=== PATIENT | male | born 1935 | race Caucasian/White ===

== ENCOUNTER 2024-02-13 17:57 | Emergency (ER) | payer MEDICARE, BC, SELFPAY ==
--- NOTE | 2024-02-13 18:12 | ED.PDOC.TRB ---
ED Provider Triage
-
Patient seen by provider in Triage?: Seen in Triage
This is a 88 year old male that comes in with c/o pain in the left that is shooting up in to his leg. This started 2.5 weeks ago. Pain has increased.
[2024-02-13 18:13] VITALS: BP 162/96
[2024-02-13 18:39] LABS: % Basophils 0.5 % (0-2); % Eosinophils 1.2 % (0-6); % Immature Granulocytes 0.3 % (0-0.5); % Monocytes 6.5 % (1.7-9.3); % Neutrophils 79.5 % (42.2-75.2); Absolute Eosinophils 0.1 10^3/uL (0-0.7); Absolute Lymphocytes 1.1 10^3/uL (1.2-3.4); Absolute Monocytes 0.6 10^3/uL (0.1-0.6); Hematocrit 37.5 % (39.0-52.0); Mean Corp Hgb Conc. 34.7 g/dL (33.0-37.0); Mean Corpuscular Hgb 34.5 pg (27.0-31.0); Mean Corpuscular Volume 99.5 fL (80.0-94.0); Mean Platelet Volume 9.9 fL (7.4-10.4); Nucleated Red Blood Cells % 0 % (-); Platelet Count 180 10^3/uL (130-400); Red Blood Cell Count 3.77 10^6/uL (4.70-6.10); Red Cell Dist. Width 11.9 % (11.5-14.5); White Blood Cell Count 8.8 10^3/uL (4.8-10.8)
[2024-02-13 18:53] LABS: ALT (SGPT) 21 U/L (0-50); AST (SGOT) 34 U/L (17-59); Albumin 4.4 g/dl (3.5-5.0); Alkaline Phosphatase 76 U/L (38-126); Blood Urea Nitrogen 30 mg/dl (9-20); Carbon Dioxide 22 mmol/L (22-30); Chloride 102 mmol/L (98-107); Glucose 161 mg/dl (70-99); Potassium 4.8 mmol/L (3.5-5.1); Sodium 141 mmol/L (135-145); Total Bilirubin 0.7 mg/dl (0.2-1.3); Total Protein 6.9 g/dl (6.3-8.2)
[2024-02-13 19:11] LABS: Uric Acid 8.4 mg/dl (3.5-8.5)
--- NOTE | 2024-02-13 21:41 | EDRN ---
This RN was informed that Patient was seen ambulating out of the department by ED registration within the last 10 minutes.
== END 2024-02-13 21:48 | disposition left against medical advice (07) ==
LOC: EMR 17:57
PROVIDERS: Clinical Nurse Specialist Family Health; FAMILY PHYSICIAN Physician Assistant
DX: R22.42 Localized swelling, mass and lump, left lower limb (principal); M79.605 Pain in left leg; Z53.21 Procedure and treatment not carried out due to patient leaving prior to being seen by health care provider
CPT/HCPCS: 99281; 73630; 80053; 84550; 85025; 93971

== ENCOUNTER → 2024-02-27 14:40 | Outpatient (REF) | payer MEDICARE, BC, SELFPAY ==
[2024-02-27 15:42] LABS: % Basophils 0.1 % (0-2); % Eosinophils 0.1 % (0-6); % Immature Granulocytes 1.9 % (0-0.5); % Lymphocytes 7.7 % (20.5-51.1); % Monocytes 1.7 % (1.7-9.3); % Neutrophils 88.5 % (42.2-75.2); Absolute Immature Granulocytes 0.2 10^3/uL (0-0.05); Absolute Monocytes 0.2 10^3/uL (0.1-0.6); Absolute Neutrophils 10.9 10^3/uL (1.4-6.5); Hematocrit 38.4 % (39.0-52.0); Hemoglobin 12.9 g/dL (13.0-18.0); Mean Corp Hgb Conc. 33.6 g/dL (33.0-37.0); Mean Corpuscular Volume 98.2 fL (80.0-94.0); Mean Platelet Volume 9.8 fL (7.4-10.4); Nucleated Red Blood Cells % 0 % (-); Platelet Count 233 10^3/uL (130-400); Red Blood Cell Count 3.91 10^6/uL (4.70-6.10); Red Cell Dist. Width 12.1 % (11.5-14.5); White Blood Cell Count 12.3 10^3/uL (4.8-10.8)
[2024-02-27 15:51] LABS: Erythrocyte Sed Rate 27 mm/hour (0-20)
[2024-02-27 16:11] LABS: ALT (SGPT) 28 U/L (0-50); AST (SGOT) 29 U/L (17-59); Albumin 4.6 g/dl (3.5-5.0); Alkaline Phosphatase 65 U/L (38-126); Blood Urea Nitrogen 38 mg/dl (9-20); Calcium 10.1 mg/dl (8.4-10.2); Carbon Dioxide 26 mmol/L (22-30); Chloride 97 mmol/L (98-107); Glucose 108 mg/dl (70-99); Potassium 5.6 mmol/L (3.5-5.1); Sodium 137 mmol/L (135-145); Total Bilirubin 0.8 mg/dl (0.2-1.3)
[2024-02-27 16:21] LABS: Uric Acid 8.1 mg/dl (3.5-8.5)
== END ==
LOC: REG 14:40
PROVIDERS: ATTENDING PHYSICIAN Physician Assistant
DX: M10.9 Gout, unspecified (principal); N18.31 Chronic kidney disease, stage 3a
CPT/HCPCS: 36415; 80053; 84550; 85025; 85652

== ENCOUNTER → 2024-05-15 13:58 | Outpatient (REF) | payer MEDICARE, BC, SELFPAY ==
[2024-05-15 15:21] LABS: Blood Urea Nitrogen 30 mg/dl (9-20); Calcium 9.7 mg/dl (8.4-10.2); Carbon Dioxide 29 mmol/L (22-30); Chloride 99 mmol/L (98-107); Glucose 89 mg/dl (70-99); Potassium 4.3 mmol/L (3.5-5.1); Sodium 138 mmol/L (135-145); eGFR 48.34
== END ==
LOC: REG 13:58
PROVIDERS: ATTENDING PHYSICIAN Nuclear Medicine Nuclear Cardiology; FAMILY PHYSICIAN Physician Assistant
DX: I10 Essential (primary) hypertension (principal)
CPT/HCPCS: 36415; 80048

== ENCOUNTER → 2024-08-13 08:23 | Outpatient (REF) | payer OTHER, SELFPAY ==
[2024-08-13 09:13] LABS: % Basophils 0.6 % (0-2); % Eosinophils 2.4 % (0-6); % Immature Granulocytes 0.5 % (0-0.5); % Lymphocytes 18.9 % (20.5-51.1); % Neutrophils 67.6 % (42.2-75.2); Absolute Eosinophils 0.2 10^3/uL (0-0.7); Absolute Lymphocytes 1.2 10^3/uL (1.2-3.4); Absolute Monocytes 0.6 10^3/uL (0.1-0.6); Absolute Neutrophils 4.2 10^3/uL (1.4-6.5); Hematocrit 38.1 % (39.0-52.0); Hemoglobin 12.7 g/dL (13.0-18.0); Mean Corp Hgb Conc. 33.3 g/dL (33.0-37.0); Mean Corpuscular Hgb 33.3 pg (27.0-31.0); Mean Platelet Volume 10.3 fL (7.4-10.4); Nucleated Red Blood Cells % 0 % (-); Platelet Count 190 10^3/uL (130-400); Red Blood Cell Count 3.81 10^6/uL (4.70-6.10); Red Cell Dist. Width 12.5 % (11.5-14.5); White Blood Cell Count 6.2 10^3/uL (4.8-10.8)
[2024-08-13 10:19] LABS: ALT (SGPT) 21 U/L (0-50); AST (SGOT) 30 U/L (17-59); Alkaline Phosphatase 67 U/L (38-126); Blood Urea Nitrogen 37 mg/dl (9-20); Calcium 9.9 mg/dl (8.4-10.2); Carbon Dioxide 30 mmol/L (22-30); Chloride 102 mmol/L (98-107); Glucose 98 mg/dl (70-99); HDL Cholesterol 53 mg/dl; Iron 134 ug/dl (49-181); LDL Cholesterol, Calculated 60 mg/dl; Sodium 138 mmol/L (135-145); Total Cholesterol 133 mg/dl (50-199); Total Protein 6.5 g/dl (6.3-8.2); Triglyceride 104 mg/dl (10-149); Uric Acid 9.6 mg/dl (3.5-8.5); Very Low Density Lipoprotein 20 mg/dl (0-30)
[2024-08-13 10:34] LABS: Vitamin B12 836 pg/ml (239-931)
== END ==
LOC: REG 08:23
PROVIDERS: ATTENDING PHYSICIAN Physician Assistant
DX: G62.9 Polyneuropathy, unspecified (principal); I25.10 Atherosclerotic heart disease of native coronary artery without angina pectoris; I10 Essential (primary) hypertension; E78.5 Hyperlipidemia, unspecified; G47.30 Sleep apnea, unspecified; M1A.37 Chronic gout due to renal impairment, ankle and foot; N18.31 Chronic kidney disease, stage 3a; R79.89 Other specified abnormal findings of blood chemistry
CPT/HCPCS: 36415; 80053; 80061; 82607; 82728; 83540; 84550; 85025

== ENCOUNTER 2025-05-09 11:27 | Emergency (ER) | payer OTHER, SELFPAY ==
[2025-05-09 11:32] VITALS: BP 182/102
--- NOTE | 2025-05-09 12:21 | ED.GENMED ---
History of Present Illness
General
Chief Complaint: Fall
Source: patient
Time Seen by Provider: 05/09/25 12:00
History of Present Illness
History of Present Illness:
89-year-old male with a past medical history of chronic peripheral neuropathy, hypertension, hyperlipidemia, CAD, previous prostate cancer presenting to the ER for evaluation after he accidentally stumbled off a step on his porch causing him to fall
landing on his right shoulder, now with right shoulder pain and lack of range of motion. No other injuries were sustained. Patient states he did not have any head injury, does not have a headache, no LOC, no vomiting or visual changes. He takes a
daily 81 mg aspirin but no other thinners. Patient walks with a cane due to his neuropathy. He denies any previous history of injury or surgery to the right upper extremity. Patient did take tramadol for pain which he usually takes due to his
peripheral neuropathy and states his pain is well-controlled at the time.
Past History
Past History
ED Past Medical History: CAD, Cancer, HTN, Hypercholesterolemia, Hypothyroidism, Psychiatric (Depression) and Other (Sleep apnea, arthritis, intention tremor)
ED Past Surgical History: Orthopedic and Urological (Lithotripsy and cryo- prostate surgery)
Social History
Tobacco: Non-smoker
Alcohol: Occasional
Drug: None
Personal:
Living: with family
Employment: Retired
Family History
Family History: CAD
Review of Systems
Review of Systems
All Other Systems: ROS reviewed and negative except as documented in HPI and ROS
Phy Exam
Physical Exam
Physical Exam:
GENERAL: Alert , in no apparent distress
HEAD: Normocephalic atraumatic
EYE: conjunctiva clear
NECK: Supple
ENT: o/p clr, mmm.
CARDIAC: Regular rate and rhythm
LUNGS: Clear breath sounds bilaterally, no acute respiratory distress, no wheezes/rales/rhonchi
NEUROLOGICAL: Alert and oriented
SKIN: Warm and dry, skin intact.
MUSCULOSKELETAL: well perfused. Right upper extremity: There is tenderness over the lateral clavicle on the right but without any tenting of the skin or ecchymosis. Limited range of motion of the right shoulder secondary to pain but no obvious
deformities appreciated. Remainder of extremities within normal limits and neurovascularly intact. No tenderness to the humerus, elbow, wrist or digits.
PSYCH: Normal and appropriate interaction.
Scores
Heart Failure Risk
Heart Failure Risk Score: Not Applicable
Heart Score for Chest Pain Patients
STEMI patient?: Not applicable
Withdrawal Assessment of Alcohol
Withdrawal Assessment Completed?: Not applicable
Course
Orders/Labs/Results
Orders:
Orders
05/09/25 11:28
Shoulder, Right, Trauma [CR Shoulder, Trauma - Right] Urgent
Comment:
Reason For Exam: pain post mechanical fall.
05/09/25 12:20
Sling Right-Treatment ONCE
Vital Signs
Initial and Last Documented VS:
Initial Vital Signs
Temp Pulse Resp BP Pulse Ox
97.9 F 62 18 182/102 99
05/09/25 11:32 05/09/25 11:32 05/09/25 11:32 05/09/25 11:32 05/09/25 11:32
Last Documented Vital Signs
Temp Pulse Resp BP Pulse Ox
97.9 F 62 18 182/102 99
05/09/25 11:32 05/09/25 11:32 05/09/25 11:32 05/09/25 11:32 05/09/25 12:21
MDM/Problems Addressed
Differential Diagnosis Includes:
Clavicle fracture
Rib fracture
Accidental Fall
No concern for syncope
Considered head injury however patient declines any neuro symptoms or head injury
MDM/Problems Addressed:
89-year-old male presenting to the emergency department for evaluation following accidental fall resulting in right shoulder injury. X-ray of the right shoulder does reveal a lateral clavicle fracture that is nondisplaced. No other injuries noted
other than a small abrasion to the right humeral region with a dressing over top. Will place patient in a sling. He has seen [facility] for other orthopedic injuries in the past, will refer patient back to [facility]. Can continue with his
tramadol as needed for pain, stable for discharge home, aware of return precautions to the ER.
*Radiology
Radiology exam reviewed: preliminary read by ED provider (Fracture of the lateral end of the right clavicle)
*Pulse Oximetry
SaO2: 99
Oxygen Mode of Delivery: Room air
Patient hypoxic: no
*Critical Care Note
Total Time (30-74mins, 75-104mins- exclusive of procedures): Not Applicable
ED Attending Note
-
Portions of this chart may have been created with voice recognition software.� Occasional wrong word or��sound alike� substitutions may have occurred due to the inherent limitations of voice recognition software.
Discharge Plan
Departure
Patient Disposition: Home (Routine Discharge)
Date of Disposition: 05/09/25
Time of Disposition: 12:21
Patient with high blood pressure during this ER visit?: Yes
Discharge Problem:
Accidental fall, Closed right clavicular fracture
Instructions: Fractures - Clavicle (Adult)
Prescriptions:
No Action
multivitamin [Daily Multiple] 1 EACH tablet
1 ea PO DAILY
nitroglycerin 0.4 MG tablet, sublingual
0.4 mg sublingual [id number] PRN (Reason: chest pain) Qty: 30 2RF
Patient Comments:
patient states that he has never taken nitro but it is ordered prn
metoprolol succinate 50 MG tablet extended release 24 hr
50 mg PO DAILY
gabapentin 300 MG capsule
600 mg PO HS
gabapentin 300 MG capsule
300 mg PO DAILY
rosuvastatin 10 MG tablet
10 mg PO DAILY
cholecalciferol (vitamin D3) 1,000 UNITS tablet
1,000 units PO DAILY
Finasteride
5 mg PO DAILY
Levothyroxine
25 mcg PO DAILY
Super B Maxi Complex Caplet
1 tab PO DAILY
Patient Comments:
takes q 48 hours
aspirin 325 MG tablet,delayed release (DR/EC)
325 mg PO DAILY 0RF
levofloxacin 500 MG tablet
500 mg PO DAILY 0RF
oxycodone 10 MG tablet
10 mg PO Q4HPRN PRN (Reason: moderate pain) 0RF
Referrals:
Kaitlyn Shi PA-C [Family Provider, Internal Medicine]
Calderon Calixto MD [Active, Orthopedics]
Interventions
Interventions:
*Risk Screen - Suicide Last Done: 05/09/25 11:59
*General Assessment Last Done: 05/09/25 11:59
*Neglect/Abuse Screening Last Done: 05/09/25 11:59
*ED- Fall Risk Assessment Last Done: 05/09/25 11:59
*ED COVID-19 Vaccine History Last Done: 05/09/25 11:59
*ED Influenza Vaccine History Last Done: 05/09/25 11:59
*Nursing Disposition Last Done: 05/09/25 12:40
ED-Musculoskeletal Assessment Last Done: 05/09/25 11:59
ED- Neurological Assessment Last Done: 05/09/25 11:59
ED-Skin Assessment Last Done: 05/09/25 11:59
Discharge Date and Time
Discharge Date/Time: 05/09/25 12:41
Print Language: CHADIAN
== END 2025-05-09 12:41 | disposition home or self-care (01) ==
LOC: EMR 11:27
PROVIDERS: EMERGENCY PHYSICIAN Emergency Medicine; FAMILY PHYSICIAN Physician Assistant
DX: S42.034A Nondisplaced fracture of lateral end of right clavicle, initial encounter for closed fracture (principal); W17.89XA Other fall from one level to another, initial encounter; Y92.008 Other place in unspecified non-institutional (private) residence as the place of occurrence of the external cause; G62.9 Polyneuropathy, unspecified; I10 Essential (primary) hypertension; E78.00 Pure hypercholesterolemia, unspecified; E03.9 Hypothyroidism, unspecified; I25.10 Atherosclerotic heart disease of native coronary artery without angina pectoris; R26.89 Other abnormalities of gait and mobility; G47.30 Sleep apnea, unspecified; F32.A Depression, unspecified; M19.90 Unspecified osteoarthritis, unspecified site; Z85.46 Personal history of malignant neoplasm of prostate; Z79.82 Long term (current) use of aspirin; Z88.8 Allergy status to other drugs, medicaments and biological substances
CPT/HCPCS: 99283; 73030